=== PATIENT | female | born 1985 | race African-American/Black ===

== ENCOUNTER 2016-12-27 12:43 | Emergency (ER) | payer MEDICAID ==
[~2016-12-27] VITALS: Ht 167.6 cm; Wt 102.3 kg
[~2016-12-27 12:43] MED LIST: MACR100C PO; PRENCAP6 PO; ZOFR4TAB3 SL
[2016-12-27 12:46] VITALS: BP 136/108; PULSE 108; RESP 20; TEMP 97.5; O2SAT 97
== END 2016-12-27 15:00 | disposition left against medical advice (07) ==
LOC: NED 12:43
DX: R51 Headache (principal)
CPT/HCPCS: 99281